=== PATIENT | male | born 1985 | race Two or more races ===

== ENCOUNTER 2018-10-05 16:21 | Emergency (ER) | payer MEDICAID ==
[~2018-10-05] VITALS: Ht 180.3 cm; Wt 106.6 kg
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
[2018-10-05] MEDS ORDERED: LIDOCAINE 1% INJ 50 ML MDV IJ ONE (17:31)
[2018-10-05] MEDS: LIDOCAINE 1% INJ 50 ML MDV IJ ONE (18:30)
[2018-10-05] MEDS ORDERED: IBUPROFEN 400 MG TABLET ONE (18:31)
[2018-10-05] MEDS: IBUPROFEN 400 MG TABLET PO ONE (18:33)
[2018-10-05] MEDS ORDERED: BUPIVACAINE 0.25% 75 MG/30 ML VIAL ONE (18:59)
--- NOTE | 2018-10-05 20:40 | NUR ---
ER PRODUCTION SUPPORT MANAGER AT BEDSIDE FOR SUTURES
[2018-10-05] MEDS ORDERED: CEPHALEXIN MONOHYDRATE 500 MG CAPSULE PO ONE (20:43)
[2018-10-05] MEDS ORDERED: ONDANSETRON 4 MG TAB.RAPDIS ONE (20:43)
[2018-10-05] MEDS ORDERED: oxyCODONE/APAP (5/325 MG) 1 UDTAB TABLET ONE (20:43)
[2018-10-05] MEDS: CEPHALEXIN MONOHYDRATE 500 MG CAPSULE PO ONE (20:47)
[2018-10-05] MEDS: oxyCODONE/APAP (5/325 MG) 1 UDTAB TABLET PO ONE (20:47)
[2018-10-05] MEDS: ONDANSETRON 4 MG TAB.RAPDIS SL ONE (20:48)
--- NOTE | 2018-10-05 21:13 | NUR ---
Patient discharged to home in stable condition. Written and verbal after care instructions given. Patient verbalizes understanding of instruction. Pt ambulatory with a steady gait. Instructed not to drive, left with friend
[2018-10-05 21:15] VITALS: BP 148/79
== END 2018-10-05 21:15 | disposition home or self-care (01) ==
LOC: ER 16:23
DX: S61.211A Laceration without foreign body of left index finger without damage to nail, initial encounter (principal); F17.200 Nicotine dependence, unspecified, uncomplicated; F12.10 Cannabis abuse, uncomplicated; F10.10 Alcohol abuse, uncomplicated; Y90.9 Presence of alcohol in blood, level not specified; W23.0XXA Caught, crushed, jammed, or pinched between moving objects, initial encounter; Y93.89 Activity, other specified; Y92.89 Other specified places as the place of occurrence of the external cause; Y99.8 Other external cause status
CPT/HCPCS: 12002; 73140 ×2; 99284; A4606; A6403 ×3; J3490 ×2; Q0162